=== PATIENT | male | born 1960 ===

== ENCOUNTER 2025-04-24 07:00 | Inpatient (IN) | payer OTHER ==
[~2025-04-24] VITALS: Ht 180.3 cm; Wt 95.3 kg
[2025-04-24 07:38] VITALS: BP 146/82
[2025-04-24] MEDS ORDERED: NEURONTIN800 MG (07:40)
[2025-04-24] MEDS ORDERED: RELAFEN (07:40)
[2025-04-24] MEDS ORDERED: VITAMIN D (07:40)
[2025-04-24 07:45] LABS: BASO % 0.9 % (0.1-1.2); EOS # 0.09 (0.04-0.54); EOS % 1.6 % (0.7-7.0); LYMPH # 1.91 (1.18-3.74); LYMPH % 33.6 % (19.3-53.1); MEAN PLATELET VOLUME 9.20 fl (9.4-12.4); MONO # 0.50 (0.24-0.82); MONO % 8.8 % (4.7-12.5); NEUT # 3.12 (1.56-6.13); NEUT % 54.9 % (34.0-71.1); RED CELL DISTRIBUTION WIDTH 13.1 % (11.6-14.4)
[2025-04-24 07:51] LABS: URINE APPEARANCE Clear; URINE BILIRRUBIN Negative (NEGATIVE); URINE BLOOD Negative; URINE COLOR Yellow; URINE GLUCOSE Negative (NEGATIVE); URINE KETONE Negative (NEGATIVE); URINE LEUKOCYTE Negative; URINE NITRATE Negative; URINE PROTEIN Negative (NEGATIVE); URINE UROBILINOGEN 0.2 E.U./dl
[2025-04-24 07:55] LABS: URINE BACTERIA 6.1 uL (0.0-1933); URINE WBC 4.5 uL (0.0-23.2)
[2025-04-24 07:58] LABS: URINE CAST 0.14 uL (0.0-1.40); URINE EPITHELIAL CELLS 0.7 uL (0.0-38.8); URINE RBC 1.6 uL (0.0-20.8)
[2025-04-24 08:11] LABS: INR 1.02
[2025-04-24 08:38] LABS: ALT/SGPT 42.0 U/L (12-78); AST/SGOT 27.0 U/L (15-37); BILIRUBIN TOTAL 0.85 mg/dL (0.3-1.2); BUN CREA RATIO 11.0 (7.0-25.0); CREATININE SERUM 0.95 mg/dL (0.70-1.30); GFR 79.32; GLOBULINA 3.7 G/DL (2.4-3.5); GLUCOSE FASTING 105.0 mg/dL (65-100); OSMOLALITY SERUM 283.0 MOSM/KG (275-295)
[2025-04-30] MEDS ORDERED: CEFAZOLIN SODIUM 1,000 MG VIAL IV ONE (13:15)
[2025-04-30] MEDS ORDERED: KETOROLAC TROMETHAMINE 60 MG VIAL IM ONE (13:15)
[2025-04-30] MEDS ORDERED: TRANEXAMIC ACID 100MG/1ML (1000MG) AMPUL IV ONE ×2 (13:15)
[2025-04-30] MEDS ORDERED: MORPHINE SULFATE 4 MG/ML CARTRIDGE IV ONE (13:15)
[2025-04-30] MEDS ORDERED: VANCOMYCIN HCL 1,000 MG VIAL IR ONE (14:00)
[2025-04-30] MEDS ORDERED: GENTAMICIN SULFATE 40 MG/ML VIAL IV SCH (15:54)
[2025-04-30] MEDS ORDERED: MORPHINE SULFATE 4 MG/ML CARTRIDGE IV PRN (16:00)
[2025-04-30] MEDS ORDERED: MORPHINE SULFATE 2 MG/ML CARTRIDGE IV ONE (16:00)
[2025-04-30] MEDS ORDERED: SODIUM CHLORIDE 0.45 % 1,000 ML IV SCH (16:00)
[2025-04-30] MEDS ORDERED: ONDANSETRON HCL 2 MG/ML VIAL IV PRN (16:00)
[2025-04-30] MEDS ORDERED: CEFAZOLIN SODIUM 1,000 MG VIAL IV SCH (18:00)
[2025-04-30 20:00] VITALS: BP 147/69; O2SAT 97
[2025-05-01 01:20] VITALS: BP 134/77; O2SAT 97
[2025-05-01 07:39] LABS: BASO % 0.3 % (0.1-1.2); EOS # 0.06 (0.04-0.54); EOS % 0.8 % (0.7-7.0); LYMPH # 1.24 (1.18-3.74); LYMPH % 16.5 % (19.3-53.1); MEAN PLATELET VOLUME 9.80 fl (9.4-12.4); MONO # 0.59 (0.24-0.82); MONO % 7.9 % (4.7-12.5); NEUT # 5.55 (1.56-6.13); NEUT % 73.8 % (34.0-71.1); RED CELL DISTRIBUTION WIDTH 13.2 % (11.6-14.4)
[2025-05-01 08:00] VITALS: BP 116/70; O2SAT 95
[2025-05-01] MEDS ORDERED: ACETAMINOPHEN WITH CODEINE 1 UDTAB TABLET PO PRN (08:15)
[2025-05-01] MEDS ORDERED: BACITRACIN 28.35 GM OINT.TUBE TP SCH (09:00)
[2025-05-01] MEDS ORDERED: SENNA/DOCUSATE SODIUM 1 TAB TABLET PO SCH (09:00)
[2025-05-01] MEDS ORDERED: RIVAROXABAN 10 MG TAB PO SCH (09:00)
[2025-05-01] MEDS ORDERED: IRON FUM,PS/FOLIC/BCOMP,C NO.9 1 CAP CAPSULE PO SCH (09:00)
[2025-05-01 15:02] LABS: COVID-19 AG NEGATIVE (NEGATIVE)
[2025-05-01 16:53] VITALS: BP 137/76; O2SAT 95
[2025-05-01] MEDS ORDERED: SULFAMETHOXAZOLE/TRIMETHOPRIM DS 1 TAB PO SCH (21:00)
[2025-05-02 00:40] VITALS: BP 127/68; O2SAT 97
[2025-05-02] MEDS ORDERED: INTEGRA PLUS C1 EACH PO (06:41)
[2025-05-02] MEDS ORDERED: Septra Ds Tablet PO (06:41)
[2025-05-02] MEDS ORDERED: XARELTO10 MG PO (06:42)
[2025-05-02] MEDS ORDERED: ACETAMINOPHEN-1 EAC2 PO (06:42)
[2025-05-02 08:00] VITALS: BP 124/76; O2SAT 95
[2025-05-02 08:36] LABS: BASO % 0.3 % (0.1-1.2); EOS # 0.02 (0.04-0.54); EOS % 0.2 % (0.7-7.0); LYMPH # 1.45 (1.18-3.74); LYMPH % 13.3 % (19.3-53.1); MEAN PLATELET VOLUME 9.50 fl (9.4-12.4); MONO # 1.15 (0.24-0.82); MONO % 10.6 % (4.7-12.5); NEUT # 8.17 (1.56-6.13); NEUT % 75.1 % (34.0-71.1); RED CELL DISTRIBUTION WIDTH 13.2 % (11.6-14.4)
== END 2025-05-02 22:29 | DRG 470 ==
LOC: O/R 04-30 06:49 → SURH 04-30 07:00 → O/R 04-30 16:00 → SURH 04-30 16:13
PROVIDERS: ADMIT Orthopaedic Surgery Sports Medicine; ATTEND Orthopaedic Surgery Sports Medicine
PROC: 0SRB0JZ Replacement of Left Hip Joint with Synthetic Substitute, Open Approach (ICD-10-PCS; principal; 2025-04-30 07:00)
DX: M16.12 Unilateral primary osteoarthritis, left hip (principal)